=== PATIENT | male | born 1990 | race Two or more races ===

== ENCOUNTER 2022-12-03 23:28 | Emergency (ER) | payer OTHER ==
[~2022-12-03] VITALS: Ht 188 cm; Wt 77.2 kg
[2022-12-04 01:51] VITALS: BP 144/91
[2022-12-04] MEDS ORDERED: CEPH-558 PO (02:38)
[2022-12-04] MEDS ORDERED: CEPHALEXIN MONOHYDRATE 500 MG CAPSULE PO ONE (03:00)
[2022-12-04] MEDS ORDERED: PERTUSS(ACELL),DIPH,TET VAC/PF 0.5 ML SYRINGE IM. ONE (03:00)
== END 2022-12-04 03:23 | disposition home or self-care (01) ==
LOC: EMS 23:29
DX: S92.912B Unspecified fracture of left toe(s), initial encounter for open fracture (principal); X58.XXXA Exposure to other specified factors, initial encounter; Y93.89 Activity, other specified; Y92.89 Other specified places as the place of occurrence of the external cause; Y99.8 Other external cause status
CPT/HCPCS: 90471; 90715; 99283